=== PATIENT | female | born 1970 | race Caucasian/White ===

== ENCOUNTER 2018-08-14 18:56 | Emergency (ER) | payer BC, OTHER ==
[~2018-08-14] VITALS: Wt 82.8 kg
[2018-08-14] MEDS ORDERED: KETOROLAC 30 MG INJ IV STA (20:32)
[2018-08-14] MEDS ORDERED: ASPI-817 PO (21:05)
[2018-08-14] MEDS ORDERED: IBUP-1542 PO (21:44)
--- NOTE | 2018-08-14 21:45 | ERD ---
ER Documentation Chief Complaint Chief Complaint chest pain x 3 weeks. no sob HPI Patient is a 47-year-old female with no medical problems who presents with chest pain. The patient has having left-sided chest pain which is constant for the last 3 weeks. She said she had shortness of breath at night. She describes the pain as a dull pain. She has had no treatment as of yet. Upon review of old medical records this is the patient's first visit to the emergency department. The patient does not currently have a primary doctor. ROS All systems reviewed and are negative except as per history of present illness. Medications Home Meds Active Scripts Ibuprofen* (Motrin*) 600 Mg Tab, 600 MG PO Q6H PRN for PAIN AND OR ELEVATED TEMP, #30 TAB Prov:ANALILIA REDMOND MD 08/14/18 Reported Medications Aspirin* (Aspirin* EC) 81 Mg Tablet.dr, 81 MG PO 3 TIMES A WEEK, TAB 08/14/18 Allergies Allergies: Coded Allergies: No Known Drug Allergies (Verified Allergy, Unknown, 08/14/18) PMhx/Soc Medical and Surgical Hx: pt denies Medical Hx, pt denies Surgical Hx History of Surgery: No Anesthesia Reaction: No Hx Neurological Disorder: No Hx Respiratory Disorders: No Hx Cardiac Disorders: No Hx Psychiatric Problems: No Hx Miscellaneous Medical Probl: No Hx Alcohol Use: No Hx Substance Use: Yes (SOCIALLY) Hx Tobacco Use: No Smoking Status: Never smoker FmHx Family History: No coronary disease Physical Exam Vitals Vital Signs Date Temp Pulse Resp B/P (MAP) Pulse Ox O2 O2 Flow FiO2 Time Delivery Rate 08/14/18 72 20 143/97 100 Room Air 21:54 (112) 08/14/18 75 17 156/85 100 Room Air 20:33 (108) 08/14/18 99.4 74 18 180/99 100 19:04 (126) Physical Exam Const: No acute distress Head: Atraumatic Eyes: Normal Conjunctiva ENT: Normal External Ears, Nose and Mouth. Neck: Full range of motion. No meningismus. Resp: Clear to auscultation bilaterally Cardio: Regular rate and rhythm, no murmurs Abd: Soft, non tender, non distended. Normal bowel sounds Skin: No petechiae or rashes Back: No midline or flank tenderness Ext: No cyanosis, or edema Neur: Awake and alert Psych: Normal Mood and Affect Result Diagram: 08/14/18202608/14/182026 Results 24 hrs Laboratory Tests Test 08/14/18 20:27 08/14/18 21:23 White Blood Count 9.6 10^3/ul Red Blood Count 4.39 10^6/ul Hemoglobin 13.5 g/dl Hematocrit 40.2 % Mean Corpuscular Volume 91.6 fl Mean Corpuscular Hemoglobin 30.8 pg Mean Corpuscular Hemoglobin Concent 33.6 g/dl Red Cell Distribution Width 12.5 % Platelet Count 309 10^3/UL Mean Platelet Volume 10.4 fl Immature Granulocytes % 0.500 % Neutrophils % 48.1 % Lymphocytes % 39.7 % Monocytes % 8.1 % Eosinophils % 3.2 % Basophils % 0.4 % Nucleated Red Blood Cells % 0.0 /100WBC Immature Granulocytes # 0.050 10^3/ul Neutrophils # 4.6 10^3/ul Lymphocytes # 3.8 10^3/ul Monocytes # 0.8 10^3/ul Eosinophils # 0.3 10^3/ul Basophils # 0.0 10^3/ul Nucleated Red Blood Cells # 0.0 10^3/ul Sodium Level 142 mmol/L Potassium Level 3.5 mmol/L Chloride Level 102 mmol/L Carbon Dioxide Level 27 mmol/L Anion Gap 13 Blood Urea Nitrogen 13 mg/dl Creatinine 0.78 mg/dl Est Glomerular Filtrat Rate mL/min > 60 mL/min Glucose Level 99 mg/dl Calcium Level 10.1 mg/dl Troponin I < 0.012 ng/ml POC Beta HCG, Qualitative NEGATIVE Current Medications Medications Dose Sig/Ember Start Time Status Last (Trade) Ordered Route PRN Stop Time Admin Dose Reason Admin Ketorolac 30 mg ONCE STAT 08/14/18 DC 08/14/18 Tromethamine IV 20:32 21:30 (Toradol) 08/14/18 20:34 Procedures/MDM Chest x-ray negative per radiology. EKG #1 read by me: Rate/Rhythm: Regular rate and rhythm at a rate of 68 Intervals: Normal Impression: No evidence of ischemia or arrhythmia EKG #2 read by me: Rate/Rhythm: Regular rate and rhythm at a rate of 67 Intervals: Normal Impression: No evidence of ischemia or arrhythmia Patient is a 47-year-old female with no reticulocyte risk factors who presents with chest pain. Laboratory studies were negative including a negative troponin. EKGs x2 were negative and chest x-ray was negative. At this point I doubt acute coronary syndrome, pneumonia, pneumothorax, pulmonary embolism, or aortic dissection. I believe outpatient management is appropriate but the patient will need close follow-up with the local clinics within 24-48 hours for reevaluation. She can return for any worsening symptoms. Departure Diagnosis: Primary Impression: Chest pain Chest pain type: unspecified Qualified Codes: R07.9 - Chest pain, unspecified Condition: Fair Patient Instructions: Chest Pain, Uncertain Cause [facility] Usted se morrell hecho un examen mdico de control que le indica que no est en justine condicin que requiera tratamiento urgente en el Departamento de Emergencia. Un estudio ms profundo y el tratamiento de gibbs condicin pueden esperar sin ningn riesgo hasta que usted sea atendida/o en el consultorio de gibbs mdico o justine clnica. Es responsabilidad suya arreglar justine fifi para el seguimiento del rayshawn. MANEJO DE CONDICIONES NO URGENTES EN EL FUTURO 1) Si usted tiene un mdico de atencin primaria: Usted debera llamar a gibbs mdico de atencin primaria antes de venir al departamento de emergencia. Despus de las horas de consultorio, gibbs doctor o gibbs asociado/a est disponible por telfono. El mdico o enfermero de usman en el servicio telefnico puede asesorarle por edna medio para atender el problema, o rayshawn contrario se puede programar justine fifi. 2) Si usted no tiene un mdico de atencin primaria: Llame al mdico o clnica de referencia que aparece abajo rell las horas de consultorio para hacer justine fifi para que le vean. CLINICAS: [facility] [phone] [address] [facility] 459 [phone] [facility] [phone] [facility] [phone] [facility] [phone] [facility]. [phone] [address] Additional Instructions: Llame al doctor MAANA y sundeep justine FIFI PARA DENTRO DE 1-2 WISDOM.Dgale a la secretaria que nosotros le instruimos hacer esta fifi.Avise o llame si gibbs condicin se empeora antes de la fifi. Regresa aqui si peor o no mejor. ANALILIA REDMOND MD Aug 14, 2018 21:45
[2018-08-14 21:54] VITALS: BP 143/97; PULSE 72; RESP 20
== END 2018-08-14 21:58 | disposition home or self-care (01) ==
LOC: E/R 18:56
DX: R07.9 Chest pain, unspecified (principal)
CPT/HCPCS: 36415; 71045; 80048; 81025; 84484; 85025; 93005; 96374; J1885; Z7502